=== PATIENT | female | born 1970 | race Caucasian/White ===

== ENCOUNTER → 2020-04-15 | Outpatient (CLI) | payer BC, OTHER ==
[2020-04-15 16:16] LABS: CREATINE KINASE MB 0.25 ng/mL (<4.55)
[2020-04-15 16:17] LABS: TROPONIN I < 0.012 ng/mL
== END ==
LOC: OD 15:03
PROVIDERS: ATTEND Nurse Practitioner Primary Care
DX: I20.9 Angina pectoris, unspecified (principal)
CPT/HCPCS: 36415; 82553; 84484